=== PATIENT | male | born 1975 | race Caucasian/White ===

== ENCOUNTER → 2019-03-19 | Outpatient (CLI) | payer OTHER ==
[2019-03-19 16:11] VITALS: BP 150/101
--- NOTE | 2019-03-19 16:11 | Cardiology Stress Test Report ---
Stress Test Report Date of Procedure/Referring: Date of Procedure: Mar 19, 2019 PCP Ruth Escamilla MD Admitting Physician Polly Gil Indications: Syncope Baseline Heart Rate: 78 Baseline Blood Pressure: Blood Pressure Systolic: 150 Blood Pressure Diastolic: 101 Baseline EKG: Baseline EKG: normal sinus rhythm Summary/Conclusion: Summary: In summary, the patient started exercising with a baseline heart rate, blood pressure and EKG mentioned above Patient was able to exercise for a total of 9:30 minutes on Fahad protocol, 11.1 METs Maximum heart rate 166 Maximum blood pressure 202/91 Stress EKG Minimal nondiagnostic changes Recovery EKG Return to baseline Conclusion: 1. Good exercise tolerance for a total of 9:30 minutes on Fahad protocol, 11.1 METs, achieving 95 percent of maximum expected heart rate 2. Minimal nondiagnostic EKG changes with exercise returned to baseline during recovery 3. No arrhythmia was noted 4. Hypertensive response to exercise with peak blood pressure 202/91 RUTH ESCAMILLA MD Mar 19, 2019 16:10
== END ==
LOC: CARD 12:34
PROVIDERS: ATTEND Internal Medicine Cardiovascular Disease
DX: I08.1 Rheumatic disorders of both mitral and tricuspid valves (principal); I11.9 Hypertensive heart disease without heart failure
CPT/HCPCS: 93351